=== PATIENT | male | born 1980 | race Caucasian/White ===

== ENCOUNTER 2017-06-06 16:46 | Inpatient (IN) | payer OTHER ==
[2017-06-06 16:49] VITALS: BMI 25.1
--- NOTE | 2017-06-06 18:59 | HP ---
CIWA Score - CIWA Score Nausea/Vomitin Muscle Tremors: 4-Moderate,w/Arms Extend Anxiety: 4-Mod. Anxious/Guarded Agitation: 3 Paroxysmal Sweats: 3 Orientation: 0-Oriented Tacttile Disturbances: 0-None Auditory Disturbances: 0-None Visual Disturbances: 0-None Headache: 0-None Present CIWA-Ar Total Score: 17 Admission ROS BHS - HPI Chief Complaint: Withdrawal sx. Allergies/Adverse Reactions: Allergies Allergy/AdvReac Type Severity Reaction Status Date / Time No Known Drug Allergies Allergy Verified 06/06/17 18:26 NKA Allergy Uncoded 06/06/17 18:26 History of Present Illness: 36 y/o man with a long hx. of alcoholism is admitted for detox. Pt. has been in previous detox for opiate 4 yrs. ago then enrolled in suboxone treatment. Exam Limitations: No Limitations - Ebola screening Have you traveled outside of the country in the last 21 days: No (N) Have you had contact with anyone from an Ebola affected area: No Have you been sick,other than usual withdrawal symptoms: No Do you have a fever: No - Review of Systems Constitutional: Diaphoresis EENT: reports: No Symptoms Reported Respiratory: reports: No Symptoms reported Cardiac: reports: No Symptoms Reported GI: reports: Nausea, Abdominal cramping : reports: No Symptoms Reported Musculoskeletal: reports: Back Pain, Joint Pain, Muscle Pain, Joint Stiffness, Other (spasm from CP) Integumentary: reports: Sweating Neuro: reports: Tremors Endocrine: reports: No Symptoms Reported Hematology: reports: No Symptoms Reported Psychiatric: reports: No Sypmtoms Reported Other Systems: Reviewed and Negative Patient History - Patient Medical History Hx Anemia: No Hx Asthma: No Hx Chronic Obstructive Pulmonary Disease (COPD): No Hx Cancer: No Hx Cardiac Disorders: No Hx Congestive Heart Failure: No Hx Hypertension: Yes (ON MEDS) Hx Hypercholesterolemia: No Hx Pacemaker: No HX Cerebrovascular Accident: No Hx Seizures: No Hx Dementia: No Hx Diabetes: No Hx Gastrointestinal Disorders: No Hx Liver Disease: No Hx Genitourinary Disorders: No Hx Sexually Transmitted Disorders: No Hx Renal Disease (ESRD): No Hx Thyroid Disease: No Hx Human Immunodeficiency Virus (HIV): No Hx Hepatitis C: No Hx Depression: Yes Hx Suicide Attempt: No Hx Bipolar Disorder: No Hx Schizophrenia: No Other Medical History: Spastic CP - Patient Surgical History Past Surgical History: Yes Hx Neurologic Surgery: No Hx Cataract Extraction: No Hx Cardiac Surgery: No Hx Lung Surgery: No Hx Breast Surgery: No Hx Breast Biopsy: No Hx Abdominal Surgery: No Hx Appendectomy: No Hx Cholecystectomy: No Hx Genitourinary Surgery: No Hx Section: No Hx Orthopedic Surgery: Yes (ANKLE RELEASE AT AGE 8) Anesthesia Reaction: No - PPD History Previous Implant?: Yes Documented Results: Negative w/o proof Implanted On Prior R Admission?: No PPD to be Administered?: Yes - Smoking Cessation Smoking history: Current every day smoker Have you smoked in the past 12 months: Yes Aproximately how many cigarettes per day: 30 Hx Chewing Tobacco Use: No Initiated information on smoking cessation: Yes 'Breaking Loose' booklet given: 06/06/17 - Substance & Tx. History Hx Alcohol Use: Yes Hx Substance Use: No Substance Use Type: Alcohol Hx Substance Use Treatment: Yes (Detox) - Substances Abused Alcohol Route: Oral Frequency: Daily Amount used: VODKA 1 lit, BEER- 10CANS Age of first use: 18 Date of Last Use: 06/06/17 Family Disease History - Family Disease History Family Disease History: Heart Disease: Father (HTN) Admission Physical Exam BHS - Vital Signs Vital Signs: Vital Signs - 24 hr 06/06/17 16:47 Temperature 98 F Pulse Rate 95 H Respiratory 18 Rate Blood Pressure 137/90 - Physical General Appearance: Yes: Alcohol on Breath, Tremorous, Irritable, Sweating, Anxious HEENTM: Yes: Within Normal Limits Respiratory: Yes: Chest Non-Tender, Lungs Clear, Normal Breath Sounds Neck: Yes: Supple Breast: Yes: Breast Exam Deferred Cardiology: Yes: Regular Rhythm, Regular Rate, S1, S2 Abdominal: Yes: Normal Bowel Sounds, Non Tender, Soft Genitourinary: Yes: Within Normal Limits Back: Yes: Within Normal Limits Musculoskeletal: Yes: Within Normal Limits Extremities: Yes: Tremors Neurological: Yes: Fully Oriented, Alert Integumentary: Yes: Diaphoresis Lymphatic: Yes: Within Normal Limits - Diagnostic (1) Alcohol dependence with uncomplicated withdrawal Current Visit: Yes Status: Acute (2) HTN (hypertension) Current Visit: Yes Status: Acute Qualifiers: Hypertension type: essential hypertension Qualified Code(s): I10 - Essential (primary) hypertension (3) Cerebral palsy Current Visit: Yes Status: Acute Qualifiers: 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
[2017-06-06] MEDS ORDERED: guaiFENesin/D-METHORPHAN HB 10 ML UNIT-DOSE CUPS PO PRN (19:11)
[2017-06-06] MEDS ORDERED: MENTHOL/PHENOL 1 EACH UD MM PRN (19:11)
[2017-06-06] MEDS ORDERED: LOPERAMIDE HCL 2 MG CAPSULE PO PRN (19:11)
[2017-06-06] MEDS ORDERED: MAG HYDROX/AL HYDROX/SIMETH 30 ML UNIT-DOSE CUP PO PRN (19:11)
[2017-06-06] MEDS ORDERED: IBUPROFEN 400 MG TABLET (FP) PO PRN (19:11)
[2017-06-06] MEDS ORDERED: P-EPHED 60MG/TRIPROLIDI 2.5MG TABLET PO PRN (19:11)
[2017-06-06] MEDS ORDERED: chlordiazePOXIDE HCL 25 MG CAPSULE PO ONE (19:11)
[2017-06-06] MEDS ORDERED: MAGNESIUM HYDROX 2400MG/30ML ORAL SUSPENSION 30 ML CUP PO PRN (19:11)
[2017-06-06] MEDS ORDERED: ACETAMINOPHEN 325 MG TABLET (FP) PO PRN (19:11)
[2017-06-06] MEDS ORDERED: chlordiazePOXIDE HCL 25 MG CAPSULE PO PRN (19:11)
[2017-06-06] MEDS ORDERED: MAGNESIUM CITRATE 300 ML BOTTLE PO PRN (19:11)
[2017-06-06] MEDS: NICOTINE POLACRILEX 4 MG GUM BUC PRN (20:49)
[2017-06-06] MEDS: NICOTINE 21 MG/24 HOURS TOPICAL PATCH TD SCH (21:23)
[2017-06-06] MEDS ORDERED: PATIENT'S OWN MEDICATION (NON-FORMULARY) (Tizanidine Hcl [Tizanidine Hcl] 4 MG) PO SCH (22:00)
[2017-06-06] MEDS: BACLOFEN 10 MG TABLET (FP) PO SCH (23:15)
[2017-06-06] MEDS: THIAMINE HCL 100 MG TABLET (FP) PO SCH (23:15)
[2017-06-06] MEDS: BUPRENORPHINE/NALOXONE 8 MG/2 MG FILM PACKET SL SCH (23:15)
[2017-06-06] MEDS: chlordiazePOXIDE HCL 25 MG CAPSULE PO SCH (23:16)
[2017-06-07] MEDS: BUPRENORPHINE/NALOXONE 8 MG/2 MG FILM PACKET SL SCH ×3 (05:22→22:25)
[2017-06-07] MEDS: BACLOFEN 10 MG TABLET (FP) PO SCH ×3 (05:22→22:25)
[2017-06-07] MEDS: chlordiazePOXIDE HCL 25 MG CAPSULE PO SCH ×4 (05:22→22:25)
[2017-06-07] MEDS: NICOTINE POLACRILEX 4 MG GUM BUC PRN ×2 (05:26→14:12)
[2017-06-07 10:10] LABS: CHLORIDE 106 mmol/L (98-107); POTASSIUM 3.4 mmol/L (3.5-5.1); SODIUM 142 mmol/L (136-145)
[2017-06-07 10:14] LABS: HEMATOCRIT 31.8 % (35.4-49); HEMOGLOBIN 10.2 GM/dL (11.7-16.9); MCH 29.3 pg (25.7-33.7); MEAN CELL VOLUME 91.3 fl (80-96); MEAN PLT VOLUME 8.8 fl (7.5-11.1); PLATELET COUNT 212 K/MM3 (134-434); RBC 3.49 M/mm3 (4.00-5.60); RDW 19.9 % (11.9-15.9); URINE APPEARANCE SLCLOUDY; URINE BILIRUBIN NEGATIVE (NEGATIVE); URINE BLOOD NEGATIVE (NEGATIVE); URINE COLOR AMBER; URINE GLUCOSE (UA) NEGATIVE (NEGATIVE); URINE KETONE NEGATIVE (NEGATIVE); URINE LEUK ESTERASE NEGATIVE (NEGATIVE); URINE NITRITE NEGATIVE (NEGATIVE); URINE UROBILINOGEN 4.0 E.U/dl mg/dL (0.2-1.0); WHITE BLOOD COUNT 8.6 K/mm3 (4.0-10.0)
[2017-06-07] MEDS: PRENATAL VITAMINS W/ FOLIC ACID TABLET (FP) PO SCH (10:15)
[2017-06-07] MEDS: NICOTINE 21 MG/24 HOURS TOPICAL PATCH TD SCH (10:15)
[2017-06-07] MEDS: LISINOPRIL 20 MG TABLET (FP) PO SCH (10:15)
[2017-06-07] MEDS: ATENOLOL 50 MG TABLET (FP) PO SCH (10:16)
[2017-06-07] MEDS: hydrOXYzine PAMOATE 50 MG CAPSULE (FP) PO PRN ×2 (10:16→15:25)
[2017-06-07 10:18] LABS: ALBUMIN 3.2 g/dl (3.4-5.0); ALK PHOS 76 U/L (45-117); ANION GAP 8 (8-16); BILIRUBIN,TOTAL 0.8 mg/dL (0.2-1.0); BLOOD UREA NITROGEN 12 mg/dL (7-18); CALCIUM 8.2 mg/dL (8.5-10.1); CO2 28 mmol/L (21-32); CREATININE 0.8 mg/dL (0.7-1.3); GLUCOSE,RANDOM 96 mg/dL (74-106); SGOT/AST 73 U/L (15-37); SGPT/ALT 92 U/L (12-78); TOT PROT 6.3 g/dl (6.4-8.2)
[2017-06-07 10:32] LABS: URINE PROTEIN 1+ (NEGATIVE)
[2017-06-07 11:07] LABS: EPI CELLS RARE /HPF (FEW)
--- NOTE | 2017-06-07 11:49 | PN ---
[facility] CIWA - CIWA Score Nausea/Vomitin-Mild Nausea/No Vomiting Muscle Tremors: 4-Moderate,w/Arms Extend Anxiety: 2 Agitation: 1-Slight > Activity Paroxysmal Sweats: 1-Minimal Palms Moist Orientation: 0-Oriented Tacttile Disturbances: 0-None Auditory Disturbances: 0-None Visual Disturbances: 0-None Headache: 0-None Present CIWA-Ar Total Score: 9 S Progress Note (SOAP) Subjective: nause anxiety restlessness Objective: 06/07/17 11:49 Vital Signs Temperature 97 F L 06/07/17 10:38 Pulse Rate 77 06/07/17 10:38 Respiratory Rate 18 06/07/17 10:38 Blood Pressure 134/81 06/07/17 10:38 O2 Sat by Pulse Oximetry (%) Laboratory Last Values WBC 8.6 K/mm3 (4.0-10.0) 06/07/17 08:00 RBC 3.49 M/mm3 (4.00-5.60) L 06/07/17 08:00 Hgb 10.2 GM/dL (11.7-16.9) L 06/07/17 08:00 Hct 31.8 % (35.4-49) L 06/07/17 08:00 MCV 91.3 fl (80-96) 06/07/17 08:00 MCH 29.3 pg (25.7-33.7) 06/07/17 08:00 MCHC 32.0 g/dl (32.0-35.9) 06/07/17 08:00 RDW 19.9 % (11.9-15.9) H 06/07/17 08:00 Plt Count 212 K/MM3 (134-434) 06/07/17 08:00 MPV 8.8 fl (7.5-11.1) 06/07/17 08:00 Sodium 142 mmol/L (136-145) 06/07/17 08:00 Potassium 3.4 mmol/L (3.5-5.1) L 06/07/17 08:00 Chloride 106 mmol/L (98-107) 06/07/17 08:00 Carbon Dioxide 28 mmol/L (21-32) 06/07/17 08:00 Anion Gap 8 (8-16) 06/07/17 08:00 BUN 12 mg/dL (7-18) 06/07/17 08:00 Creatinine 0.8 mg/dL (0.7-1.3) 06/07/17 08:00 Creat Clearance w eGFR > 60 (>60) 06/07/17 08:00 Random Glucose 96 mg/dL (74-106) 06/07/17 08:00 Calcium 8.2 mg/dL (8.5-10.1) L 06/07/17 08:00 Total Bilirubin 0.8 mg/dL (0.2-1.0) 06/07/17 08:00 AST 73 U/L (15-37) H 06/07/17 08:00 ALT 92 U/L (12-78) H 06/07/17 08:00 Alkaline Phosphatase 76 U/L (45-117) 06/07/17 08:00 Total Protein 6.3 g/dl (6.4-8.2) L 06/07/17 08:00 Albumin 3.2 g/dl (3.4-5.0) L 06/07/17 08:00 Urine Color Delaney 06/07/17 08:00 Urine Appearance Slcloudy 06/07/17 08:00 Urine pH 5.0 (5.0-8.0) 06/07/17 08:00 Ur Specific [place] 1.024 (1.001-1.035) 06/07/17 08:00 Urine Protein 1+ (NEGATIVE) H 06/07/17 08:00 Urine Glucose (UA) Negative (NEGATIVE) 06/07/17 08:00 Urine Ketones Negative (NEGATIVE) 06/07/17 08:00 Urine Blood Negative (NEGATIVE) 06/07/17 08:00 Urine Nitrite Negative (NEGATIVE) 06/07/17 08:00 Urine Bilirubin Negative (NEGATIVE) 06/07/17 08:00 Urine Urobilinogen 4.0 e.u/dl mg/dL (0.2-1.0) 06/07/17 08:00 Urine WBC (Auto) 2 /hpf (3-5) 06/07/17 08:00 Urine RBC (Auto) None /hpf (0-3) 06/07/17 08:00 Ur Epithelial Cells Rare /HPF (FEW) 06/07/17 08:00 RPR Titer Nonreactive (NONREACTIVE) 06/07/17 08:00 lab noted Assessment: 06/07/17 11:49 withdrawal sx Plan: continue detox
--- NOTE | 2017-06-07 15:15 | CONSULT ---
[facility] Psychiatric Consult - Data Date of interview: 06/07/17 Admission source: Sponsor Identifying data: Mr Lauren is a 36 years old single , unemployed on SSI, domiciled living with his father Substance Abuse History: Reports history of alcohol use. He started drinking alcohol at age 18, consumes one liter of vodka and 10-12x 12ox of beer daily. Last drank on 06/16/17 Medical History: Significant for hypertension, cerebral palsy and histoy of orthosurgery for ankle release at age 8. Smoles 1.5ppd Psychiatric History: Reports that he has been seeing a psychiatrist at [facility]) for depression and anxiety and he is prescribed Klonopin 0.5 mg po QID. Reports being prescribed Remeron 30 mg po HS for insomnia by his primary care physician. Reports one previous psychiatic inpatient admission for SI to [facility]. Denies history of suicidal attempt. At present, reports feeling anxiousand sleeping poorly Physical/Sexual Abuse/Trauma History: Denies history of verbal, physical or sexual abuse as well as DV relationship Additional Comment: No criminal history Mental Status Exam - Mental Status Exam Alert and Oriented to: Place, Person Cognitive Function: Fair Patient Appearance: Well Groomed Mood: Anxious Patient Behavior: Cooperative Speech Pattern: Clear Voice Loudness: Normal Thought Process: Intact, Goal Oriented Thought Disorder: Not Present Hallucinations: Denies Suicidal Ideation: Denies Insight/Judgement: Poor Sleep: Poorly Appetite: Poor Muscle strength/Tone: Normal Gait/Station: Normal Psychiatric Findings - Problem List ([place] 1, 2,3) (1) Anxiety disorder Current Visit: Yes Status: Chronic (2) Substance-induced anxiety disorder Current Visit: Yes Status: Acute (3) Alcohol dependence with uncomplicated withdrawal Current Visit: Yes Status: Acute (4) Opioid dependence on agonist therapy Current Visit: Yes Status: Chronic (5) Nicotine dependence Current Visit: Yes Status: Chronic (6) Cerebral palsy Current Visit: Yes Status: Chronic (7) HTN (hypertension) Current Visit: Yes Status: Chronic - Initial Treatment Plan Initial Treatment Plan: 1) Continue Remeron 30 mg po HS. 2) Continue inpatient detoxification
[2017-06-07] MEDS ORDERED: MIRTAZAPINE 30 MG TABLET (FP) PO SCH (22:00)
[2017-06-07] MEDS: THIAMINE HCL 100 MG TABLET (FP) PO SCH (22:25)
[2017-06-08] MEDS: BACLOFEN 10 MG TABLET (FP) PO SCH ×3 (05:43→22:48)
[2017-06-08] MEDS: chlordiazePOXIDE HCL 25 MG CAPSULE PO SCH ×3 (05:43→17:27)
[2017-06-08] MEDS: BUPRENORPHINE/NALOXONE 8 MG/2 MG FILM PACKET SL SCH ×3 (05:43→22:49)
[2017-06-08] MEDS: PRENATAL VITAMINS W/ FOLIC ACID TABLET (FP) PO SCH (10:31)
[2017-06-08] MEDS: POTASSIUM CHLORIDE TABS 20 MEQ TABLET.ER (FP) PO SCH (10:31)
[2017-06-08] MEDS: LISINOPRIL 20 MG TABLET (FP) PO SCH (10:32)
[2017-06-08] MEDS: NICOTINE 21 MG/24 HOURS TOPICAL PATCH TD SCH (10:34)
[2017-06-08] MEDS: ATENOLOL 50 MG TABLET (FP) PO SCH (11:37)
[2017-06-08] MEDS: FERROUS SO4 325 MG TABLET (FP) PO SCH ×2 (11:37→17:27)
--- NOTE | 2017-06-08 12:21 | PN ---
[facility] CIWA - CIWA Score Nausea/Vomitin-No Nausea/No Vomiting Muscle Tremors: 4-Moderate,w/Arms Extend Anxiety: 3 Agitation: 3 Paroxysmal Sweats: 3 Orientation: 0-Oriented Tacttile Disturbances: 0-None Auditory Disturbances: 0-None Visual Disturbances: 0-None Headache: 0-None Present CIWA-Ar Total Score: 13 S Progress Note (SOAP) Subjective: shakes sweats anxiety body aches Objective: 06/08/17 12:19 Vital Signs Temperature 97.9 F 06/08/17 10:00 Pulse Rate 112 H 06/08/17 10:00 Respiratory Rate 20 06/08/17 10:00 Blood Pressure 139/84 06/08/17 10:00 O2 Sat by Pulse Oximetry (%) Laboratory Tests 06/07/17 06/07/17 06/07/17 08:00 08:00 08:00 WBC 8.6 RBC 3.49 L Hgb 10.2 L Hct 31.8 L MCV 91.3 MCH 29.3 MCHC 32.0 RDW 19.9 H Plt Count 212 MPV 8.8 Sodium 142 Potassium 3.4 L Chloride 106 Carbon Dioxide 28 Anion Gap 8 BUN 12 Creatinine 0.8 Creat Clearance w eGFR > 60 Random Glucose 96 Calcium 8.2 L Total Bilirubin 0.8 AST 73 H ALT 92 H Alkaline Phosphatase 76 Total Protein 6.3 L Albumin 3.2 L Urine Color Urine Appearance Urine pH Ur Specific [place] Urine Protein Urine Glucose (UA) Urine Ketones Urine Blood Urine Nitrite Urine Bilirubin Urine Urobilinogen Ur Leukocyte Esterase Urine WBC (Auto) Urine RBC (Auto) Ur Epithelial Cells RPR Titer Nonreactive 06/07/17 08:00 WBC RBC Hgb Hct MCV MCH MCHC RDW Plt Count MPV Sodium Potassium Chloride Carbon Dioxide Anion Gap BUN Creatinine Creat Clearance w eGFR Random Glucose Calcium Total Bilirubin AST ALT Alkaline Phosphatase Total Protein Albumin Urine Color Delaney Urine Appearance Slcloudy Urine pH 5.0 Ur Specific [place] 1.024 Urine Protein 1+ H Urine Glucose (UA) Negative Urine Ketones Negative Urine Blood Negative Urine Nitrite Negative Urine Bilirubin Negative Urine Urobilinogen 4.0 e.u/dl Ur Leukocyte Esterase Negative Urine WBC (Auto) 2 Urine RBC (Auto) None Ur Epithelial Cells Rare RPR Titer potassium 3.2; kdur 20meq x 4 days aaox3 ambulating no acute distress Assessment: 06/08/17 12:20 withdrawal sx Plan: continue detox increase fluids kdur 20meqx 4 days ordered
--- NOTE | 2017-06-08 15:15 | EKG ---
Test Reason : Blood Pressure : / mmHG Vent. Rate : 075 BPM Atrial Rate : 075 BPM P-R Int : 150 ms QRS Dur : 094 ms QT Int : 400 ms P-R-T Axes : 024 067 038 degrees QTc Int : 446 ms NORMAL SINUS RHYTHM NORMAL ECG NO PREVIOUS ECGS AVAILABLE Confirmed by AMOS MORATAYA MD ([id number]) on 06/08/2017 3:15:16 PM Referred By: Confirmed By:AMOS MORATAYA MD
--- NOTE | 2017-06-08 18:46 | PN ---
[facility] Progress Note Note: patient fell on floor in [place], cause unknown but patient has cerebral palsy, nursing staff called to scene by fellow patient, patient hit head and it was bleeding, but no other complaints, appeared diaphoretic, bleeding from scalp, a and o x3, advised of need to be transferred to ed for evaluation and ct scan of head. fall risk and fall protocol 1 ordered. d/w dr. Tejeda that patient will be transferred EMS called. Patient aware and in agreement vss: bp 173/93 rr 20 p 111 o2 95%. head trauma noted to scalp, KAMALJIT CN 2-12 , moving all extremitites, no other injuries noted.
--- NOTE | 2017-06-08 18:57 | PN ---
[facility] Progress Note Note: Psychiatry Attending's test consultant note : Rapid response called. Reason : alteration of mental state + fall. Patient is found lying on the floor in hallway. Awake,conversant but disoriented.Dazed. Believes that he is at home with relatives. Disoriented to time.Able to follow simple instructions. Calm and cooperative.Noted laceration of left supra-orbital area. Medical attending,Dr Lee,attended to the patient. EMS personnel is on site.Assessment is in progress. Patient will be transferred to [facility] for appropriate care. Medications reviewed.Recommend re-evaluation of detox protocol. As a precaution,remeron is held until further orders.
[2017-06-08] MEDS: chlordiazePOXIDE 5 MG CAPSULE PO SCH (22:48)
[2017-06-08] MEDS: THIAMINE HCL 100 MG TABLET (FP) PO SCH (22:49)
[2017-06-09] MEDS: chlordiazePOXIDE 5 MG CAPSULE PO SCH ×3 (06:18→17:44)
[2017-06-09] MEDS: FERROUS SO4 325 MG TABLET (FP) PO SCH ×3 (07:14→17:44)
[2017-06-09] MEDS: BUPRENORPHINE/NALOXONE 8 MG/2 MG FILM PACKET SL SCH ×3 (07:14→22:06)
[2017-06-09] MEDS: BACLOFEN 10 MG TABLET (FP) PO SCH ×3 (07:15→22:06)
[2017-06-09] MEDS: POTASSIUM CHLORIDE TABS 20 MEQ TABLET.ER (FP) PO SCH (10:28)
[2017-06-09] MEDS: ATENOLOL 50 MG TABLET (FP) PO SCH (10:29)
[2017-06-09] MEDS: PRENATAL VITAMINS W/ FOLIC ACID TABLET (FP) PO SCH (10:29)
[2017-06-09] MEDS: LISINOPRIL 20 MG TABLET (FP) PO SCH (10:29)
[2017-06-09] MEDS: NICOTINE 21 MG/24 HOURS TOPICAL PATCH TD SCH (10:29)
--- NOTE | 2017-06-09 12:30 | PN ---
[facility] Progress Note (SOAP) Subjective: feeling better little anxiety some sweats Objective: 06/09/17 12:29 Vital Signs Temperature 98.1 F 06/09/17 10:30 Pulse Rate 83 06/09/17 10:30 Respiratory Rate 18 06/09/17 10:30 Blood Pressure 161/88 06/09/17 10:30 O2 Sat by Pulse Oximetry (%) aaox3 ambulating no acute distress Assessment: 06/09/17 12:29 withdrawal sx Plan: continue distress continue detox d/c in am
[2017-06-09] MEDS: NICOTINE POLACRILEX 4 MG GUM BUC PRN (14:13)
[2017-06-09] MEDS: THIAMINE HCL 100 MG TABLET (FP) PO SCH (22:06)
[2017-06-09] MEDS: chlordiazePOXIDE HCL 10 MG CAPSULE PO SCH (22:06)
[2017-06-10] MEDS: BUPRENORPHINE/NALOXONE 8 MG/2 MG FILM PACKET SL SCH (06:25)
[2017-06-10] MEDS: chlordiazePOXIDE HCL 10 MG CAPSULE PO SCH (06:25)
[2017-06-10] MEDS: BACLOFEN 10 MG TABLET (FP) PO SCH (06:25)
[2017-06-10] MEDS: FERROUS SO4 325 MG TABLET (FP) PO SCH (08:30)
--- NOTE | 2017-06-10 09:04 | DS ---
[facility] Detox Discharge Summary Admission Date: 06/06/17 Discharge Date: 06/10/17 - History Present History: Alcohol Dependence - Physical Exam Results Vital Signs: Vital Signs Temperature 97.5 F L 06/10/17 07:14 Pulse Rate 73 06/10/17 07:14 Respiratory Rate 18 06/10/17 07:14 Blood Pressure 139/60 06/10/17 07:14 O2 Sat by Pulse Oximetry (%) - Treatment Hospital Course: Detox Protocol Followed, Detoxed Safely, Responded well, Discharged Condition Good, Rehab Referral Accepted - Medication Discharge Medications: Ambulatory Orders Atenolol [Tenormin -] 100 mg PO DAILY 06/06/17 Baclofen 10 mg PO TID 06/06/17 Buprenorphine/Naloxone [Suboxone 8Mg/2Mg Sl Film -] 8 mg SL TID 06/06/17 Lisinopril [Prinivil -] 40 mg PO DAILY 06/06/17 Mirtazapine [Remeron -] 30 mg PO HS 06/06/17 Tizanidine HCl 4 mg PO QID 06/06/17 - Diagnosis (1) Alcohol dependence with uncomplicated withdrawal Current Visit: Yes Status: Chronic (2) Substance-induced anxiety disorder Current Visit: Yes Status: Acute (3) Anxiety disorder Current Visit: Yes Status: Chronic (4) HTN (hypertension) Current Visit: Yes Status: Chronic Qualifiers: Hypertension type: essential hypertension Qualified Code(s): I10 - Essential (primary) hypertension (5) Nicotine dependence Current Visit: Yes Status: Chronic Qualifiers: Nicotine product type: cigarettes Substance use status: uncomplicated Qualified Code(s): F17.210 - Nicotine dependence, cigarettes, uncomplicated (6) Opioid dependence on agonist therapy Current Visit: Yes Status: Chronic (7) Head trauma Current Visit: Yes Status: Acute Qualifiers: Encounter type: initial encounter Qualified Code(s): S09.90XA - Unspecified injury of head, initial encounter (8) Scalp laceration Current Visit: Yes Status: Acute Qualifiers: Encounter type: initial encounter Qualified Code(s): S01.01XA - Laceration without foreign body of scalp, initial encounter (9) Cerebral palsy Current Visit: No Status: Chronic Qualifiers: Cerebral palsy type: unspecified type Qualified Code(s): G80.9 - Cerebral palsy, unspecified - AMA Did Patient Leave Against Medical Advice: No
[2017-06-10 10:01] VITALS: BP 155/90; PULSE 108; TEMP 98.1
[2017-06-10] MEDS: POTASSIUM CHLORIDE TABS 20 MEQ TABLET.ER (FP) PO SCH (10:04)
[2017-06-10] MEDS: LISINOPRIL 20 MG TABLET (FP) PO SCH (10:04)
[2017-06-10] MEDS: ATENOLOL 50 MG TABLET (FP) PO SCH (10:04)
[2017-06-10] MEDS: PRENATAL VITAMINS W/ FOLIC ACID TABLET (FP) PO SCH (10:04)
== END 2017-06-10 11:10 | disposition home or self-care (01) | DRG 897 ==
LOC: YASAS 16:46 → Y6N 18:40
PROVIDERS: ADMIT Internal Medicine; ATTEND Internal Medicine
PROC: HZ2ZZZZ Detoxification Services for Substance Abuse Treatment (ICD-10-PCS; principal; 2017-06-06)
DX: F11.20 Opioid dependence, uncomplicated (principal); F10.230 Alcohol dependence with withdrawal, uncomplicated; G80.1 Spastic diplegic cerebral palsy; F17.210 Nicotine dependence, cigarettes, uncomplicated; F10.282 Alcohol dependence with alcohol-induced sleep disorder; F32.9 Major depressive disorder, single episode, unspecified; F41.9 Anxiety disorder, unspecified; S09.8XXA Other specified injuries of head, initial encounter; S01.01XA Laceration without foreign body of scalp, initial encounter; W18.39XA Other fall on same level, initial encounter; Y92.238 Other place in hospital as the place of occurrence of the external cause; R26.89 Other abnormalities of gait and mobility; Z99.89 Dependence on other enabling machines and devices
CPT/HCPCS: 36415; 70450-TC; 80053; 81003; 81015; 85027; 86593; 93005; 93010; 99281-25; J0475

== ENCOUNTER 2017-06-08 19:07 | Emergency (ER) | payer OTHER ==
[2017-06-08 19:36] VITALS: BP 152/88; PULSE 85; TEMP 98.2; BMI 25.1
--- NOTE | 2017-06-08 23:17 | PDOC ---
History of Present Illness - History of Present Illness Initial Comments: 06/08/17 23:17 The patient is a 36 year old male, with a significant past medical history of alcoholism and cerebral palsy, who presents to the emergency department with injury to the left side of his head s/p trip and fall at [facility] today. The patient states he remembers tripping, however, cannot recall what he tripped on or the events after tripping. He denies urine or fecal incontinence. He denies tongue trauma. He denies any other complaints. He denies chest pain, shortness of breath, headache and dizziness. He denies fever, chills, nausea, vomit, diarrhea and constipation. He denies dysuria, frequency, urgency and hematuria. Allergies: NKDA Past surgical history: none reported Social history: current tobacco use (30 cigarettes daily) <Alexandra Schwarz - Last Filed: 06/08/17 23:17> <Janae Bingham - Last Filed: 06/08/17 23:28> - General Chief Complaint: Injury Stated Complaint: FALL/HEAD INJURY Time Seen by Provider: 06/08/17 19:53 Past History <Alexandra Schwarz - Last Filed: 06/08/17 23:17> - Past Medical History Anemia: No Asthma: No Cancer: No Cardiac Disorders: No CVA: No COPD: No CHF: No Dementia: No Diabetes: No GI Disorders: No Disorders: No HTN: Yes (ON MEDS) Hypercholesterolemia: No Kidney Stones: No Liver Disease: No Seizures: No Thyroid Disease: No - Surgical History Abdominal Surgery: No Appendectomy: No Cardiac Surgery: No Cholecystectomy: No Lung Surgery: No Neurologic Surgery: No Orthopedic Surgery: Yes (ANKLE RELEASE AT AGE 8) - Reproductive History Testicular Surgery: No - Suicide/Smoking/Psychosocial Hx Smoking History: Current every day smoker Have you smoked in the past 12 months: Yes Number of Cigarettes Smoked Daily: 10 Information on smoking cessation initiated: Yes 'Breaking Loose' booklet given: 06/06/17 Hx Alcohol Use: No Drug/Substance Use Hx: No Substance Use Type: Alcohol Hx Substance Use Treatment: Yes (Detox) <Janae Bingham - Last Filed: 06/08/17 23:28> - Past Medical History Allergies/Adverse Reactions: Allergies Allergy/AdvReac Type Severity Reaction Status Date / Time No Known Drug Allergies Allergy Verified 06/08/17 19:41 NKA Allergy Uncoded 06/08/17 19:41 Home Medications: Ambulatory Orders Atenolol [Tenormin -] 100 mg PO DAILY 06/06/17 Baclofen 10 mg PO TID 06/06/17 Buprenorphine/Naloxone [Suboxone 8Mg/2Mg Sl Film -] 8 mg SL TID 06/06/17 Lisinopril [Prinivil -] 40 mg PO DAILY 06/06/17 Mirtazapine [Remeron -] 30 mg PO HS 06/06/17 Tizanidine HCl 4 mg PO QID 06/06/17 Trauma Specific PMHX - Complaint Specific PMHX Arthritis: Yes (BACK AND KNEES) <Janae Bingham - Last Filed: 06/08/17 23:28> Review of Systems - Review of Systems Able to Perform ROS?: Yes Comments:: 06/08/17 23:17 CONSTITUTIONAL: Absent: fever, chills, diaphoresis, generalized weakness, malaise, loss of appetite HEENT: (+) left sided head laceration. Absent: rhinorrhea, nasal congestion, throat pain, throat swelling, difficulty swallowing, mouth swelling, ear pain, eye pain , visual Changes CARDIOVASCULAR: Absent: chest pain, syncope, palpitations, irregular heart rate, lightheadedness , peripheral edema RESPIRATORY: Absent: cough, shortness of breath, dyspnea with exertion, orthopnea, wheezing, stridor, hemoptysis GASTROINTESTINAL: Absent: abdominal pain, abdominal distension, nausea, vomiting, diarrhea, constipation, melena, hematochezia GENITOURINARY: Absent: dysuria, frequency, urgency, hesitancy, hematuria, flank pain, genital pain MUSCULOSKELETAL: Absent: myalgia, arthralgia, joint swelling SKIN: Absent: rash, itching, pallor HEMATOLOGIC/IMMUNOLOGIC: Absent: easy bleeding, easy bruising, lymphadenopathy, frequent infections ENDOCRINE: Absent: unexplained weight gain, unexplained weight loss, heat intolerance, cold intolerance NEUROLOGIC: Absent: headache, focal weakness or paresthesias, dizziness, unsteady gait, seizure, mental status changes, bladder or bowel incontinence PSYCHIATRIC: Absent: anxiety, depression, suicidal or homicidal ideation, hallucinations. <Alexandra Schwarz - Last Filed: 06/08/17 23:17> *Physical Exam - Vital Signs Last Vital Signs Temp Pulse Resp BP Pulse Ox 98.2 F 85 18 152/88 98 06/08/17 19:30 06/08/17 19:30 06/08/17 19:30 06/08/17 19:30 06/08/17 19:30 - Physical Exam Comments: 06/08/17 23:18 GENERAL: Well developed, well nourished. Awake and alert. No acute distress. HEENT: (+) 7cm, full-thickness,linear laceration to left parietal. Normocephalic, PERRLA, EOMI. No conjunctival pallor. Sclera are non-icteric. Moist mucous membranes. Oropharynx is clear. NECK: Supple. Full ROM. No JVD. Carotid pulses 2+ and symmetric, without bruits. No thyromegaly. No lymphadenopathy. CARDIOVASCULAR: Regular rate and rhythm. No murmurs, rubs, or gallops. Distal pulses are 2+ and symmetric. PULMONARY: No evidence of respiratory distress. Lungs clear to auscultation bilaterally. No wheezing, rales or rhonchi. ABDOMINAL: Soft. Non-tender. Non-distended. No rebound or guarding. No organomegaly. Normoactive bowel sounds. MUSCULOSKELETAL Normal range of motion at all joints. No bony deformities or tenderness. No CVA tenderness. EXTREMITIES: No cyanosis. No clubbing. No edema. No calf tenderness. SKIN: (+)7 cm full-thickness, linear laceration to the left parietal region. Warm and dry. Normal capillary refill. No rashes. No jaundice. NEUROLOGICAL: Alert, awake, appropriate. Cranial nerves 2-12 intact. Normoreflexic in the upper and lower extremities. Normal speech. Toes are down-going bilaterally. Gait is normal without ataxia. PSYCHIATRIC: Cooperative. Good eye contact. Appropriate mood and affect. <Alexandra Schwarz - Last Filed: 06/08/17 23:17> - Vital Signs Last Vital Signs Temp Pulse Resp BP Pulse Ox 98.2 F 85 18 152/88 98 06/08/17 19:30 06/08/17 19:30 06/08/17 19:30 06/08/17 19:30 06/08/17 19:30 <Janae Bingham - Last Filed: 06/08/17 23:28> Procedures - Laceration/Wound Repair Left Parietal Wound Length: 5.0 to 7.5 cm (7.0cm) Wound Explored: clean, no foreign body present Wound's Depth, Shape: into muscle, linear Irrigated w/ Saline: Yes Anesthesia: 1% Lidocaine Amount of Anesthetic (ccs): 5 Wound Repaired With: Heyburn (7 tonie) Layer Closure: No Progress: 06/08/17 23:22 The patient was cleaned of any dried blood to surrounding areas. The patient tolerated the procedure well. <Alexandra Schwarz - Last Filed: 06/08/17 23:17> ED Treatment Course - RADIOLOGY Radiograph Interpretation: EXAM#: TYPE/EXAM: RESULT: [id number] CT/HEAD CT WITHOUT CONTRAST HISTORY PROVIDED: Headache TECHNIQUE: Sequential axial images were obtained from the base of the skull to the vertex. There is no evidence of acute intracranial hemorrhage, mass lesions or infarctions. The visualized paranasal sinuses and mastoid air cells are clear. IMPRESSION: No evidence of acute intracranial pathology. Reported By: Gabino Krishnamurthy MD 06/08/172204 <Alexandra Schwarz - Last Filed: 06/08/17 23:17> - RADIOLOGY Radiology Studies Ordered: Category Date Time Status HEAD CT WITHOUT CONTRAST [CT] Stat CT Scan 06/08/17 20:24 Completed <Janae Bingham - Last Filed: 06/08/17 23:28> *DC/Admit/Observation/Transfer - Attestations Scribe Attestion: 06/08/17 23:22 Documentation prepared by Alexandra Schwarz, acting as biomedical field service engineer for Janae Bingham MD <Alexandra Schwarz - Last Filed: 06/08/17 23:17> <Janae Bingham - Last Filed: 06/08/17 23:28> Diagnosis at time of Disposition: Head trauma Qualifiers: Encounter type: initial encounter Qualified Code(s): S09.90XA - Unspecified injury of head, initial encounter Scalp laceration Qualifiers: Encounter type: initial encounter Qualified Code(s): S01.01XA - Laceration without foreign body of scalp, initial encounter Cerebral palsy Qualifiers: Cerebral palsy type: unspecified type Qualified Code(s): G80.9 - Cerebral palsy , unspecified - Discharge Dispostion Disposition: HOME Condition at time of disposition: Stable - Referrals Referrals: Naren Russo MD [Primary Care Provider] - - Patient Instructions Printed Discharge Instructions: DI for Closed Head Injury, DI for Laceration Repair -- Tonie Additional Instructions: TONIE NEED TO BE REMOVED IN 7 -10 DAYS - Post Discharge Activity
== END 2017-06-09 02:07 | disposition home or self-care (01) ==
LOC: JER 19:07
DX: S01.01XA Laceration without foreign body of scalp, initial encounter (principal); S09.90XA Unspecified injury of head, initial encounter; G80.9 Cerebral palsy, unspecified; W18.39XA Other fall on same level, initial encounter; Y93.89 Activity, other specified; Y92.238 Other place in hospital as the place of occurrence of the external cause; F17.210 Nicotine dependence, cigarettes, uncomplicated; I10 Essential (primary) hypertension; F10.10 Alcohol abuse, uncomplicated
CPT/HCPCS: 70450-TC; 99281-25